=== PATIENT | female | born 1960 | race African-American/Black ===

== ENCOUNTER 2016-08-07 21:39 | Emergency (ER) | payer BC, OTHER ==
[2016-08-07 21:49] VITALS: TEMP 99.1; BMI 27.4
--- NOTE | 2016-08-07 23:11 | PDOC ---
History of Present Illness - General Chief Complaint: Blood Pressure Problem Stated Complaint: PCP SENT/DIARRHEA/VOMITING Time Seen by Provider: 08/07/16 22:02 History Source: Patient Exam Limitations: No Limitations - History of Present Illness Initial Comments: 08/07/16 23:39 56-year-old female presents to the emergency department complaining of diarrhea 3 days. Patient states she has [id number] 3 days ago at a restaurant. When she went home, she started having diarrhea that were nonbilious and nonbloody. She denies any nausea/vomiting, fever, chills, headaches, chest pain, shortness of breath, abdominal pains, flank pains, urinary symptoms. Patient was seen by her PMD: (Dr. Austin Ureña [phone]) who sent patient to the emergency department for evaluation Timing/Duration: other (x3d) Severity: mild Associated Symptoms: reports: other (diarrhea) Past History - Past Medical History Allergies/Adverse Reactions: Allergies Allergy/AdvReac Type Severity Reaction Status Date / Time Penicillins Allergy Mild Rash Verified 08/07/16 21:49 Sulfa (Sulfonamide Allergy Mild Hives Verified 08/07/16 21:49 Antibiotics) [Sulfa(Sulfonamide Antibiotics)] Home Medications: Ambulatory Orders Amlodipine Besylate [Norvasc -] 5 12/22/11 Hydrocortisone 1% Lotion [Hytone 1% Lotion -] 118 ml NR BID #1 bottle 12/22/11 Potassium Chloride [K-Dur 20 Meq] 20 12/22/11 Prednisone [Deltasone -] 20 mg PO DAILY #8 tablet 12/22/11 Valsartan [Diovan] 40 mg PO DAILY 12/22/11 HTN: Yes Thyroid Disease: Yes (hypo) - Immunization History Immunization Up to Date: No - Psycho/Social/Smoking Cessation Hx Anxiety: No Suicidal Ideation: No Smoking Status: No Smoking History: Never smoked Have you smoked in the past 12 months: No Number of Cigarettes Smoked Daily: 0 Information on smoking cessation initiated: No Hx Alcohol Use: No Drug/Substance Use Hx: No Substance Use Type: None Review of Systems - Review of Systems Able to Perform ROS?: Yes Comments:: 08/07/16 23:39 CONSTITUTIONAL: Absent: fever, chills, diaphoresis, generalized weakness, malaise, loss of appetite HEENT: Absent: rhinorrhea, nasal congestion, throat pain, throat swelling, difficulty swallowing, mouth swelling, ear pain, eye pain, visual Changes CARDIOVASCULAR: Absent: chest pain, loss of consciousness, palpitations, irregular heart rate, peripheral edema RESPIRATORY: Absent: cough, shortness of breath, dyspnea with exertion, orthopnea, wheezing, stridor, hemoptysis GASTROINTESTINAL: +diarrhea Absent: abdominal pain, abdominal distension, nausea, vomiting, constipation, melena, hematochezia GENITOURINARY: Absent: dysuria, frequency, urgency, hesitancy, hematuria, flank pain, genital pain MUSCULOSKELETAL: Absent: myalgia, arthralgia, joint swelling SKIN: Absent: rash, itching, pallor HEMATOLOGIC/IMMUNOLOGIC: Absent: easy bleeding, easy bruising, lymphadenopathy, frequent infections ENDOCRINE: Absent: unexplained weight gain, unexplained weight loss, heat intolerance, cold intolerance NEUROLOGIC: Absent: headache, focal weakness or paresthesias, dizziness, unsteady gait, seizure, mental status changes, bladder or bowel incontinence PSYCHIATRIC: Absent: anxiety, depression, suicidal or homicidal ideation, hallucinations. Is the patient limited Lithuanian proficient: No *Physical Exam - Vital Signs Last Vital Signs Temp Pulse Resp BP Pulse Ox 99.1 F 96 H 18 104/72 100 08/07/16 21:45 08/07/16 21:45 08/07/16 21:45 08/07/16 21:45 08/07/16 21:45 - Physical Exam Comments: 08/07/16 23:39 GENERAL: Well developed, well nourished. Awake and alert. No acute distress. HEENT: Normocephalic, atraumatic. PERRLA, EOMI. No conjunctival pallor. Sclera are non- icteric. Moist mucous membranes. Oropharynx is clear. NECK: Supple. Full ROM. No JVD. Carotid pulses 2+ and symmetric, without bruits. No thyromegaly. No lymphadenopathy. CARDIOVASCULAR: Regular rate and rhythm. No murmurs, rubs, or gallops. Distal pulses are 2+ and symmetric. PULMONARY: No evidence of respiratory distress. Lungs clear to auscultation bilaterally. No wheezing, rales or rhonchi. ABDOMINAL: Soft. Non-tender. Non-distended. No rebound or guarding. No organomegaly. Normoactive bowel sounds. MUSCULOSKELETAL Normal range of motion at all joints. No bony deformities or tenderness. No CVA tenderness. EXTREMITIES: No cyanosis. No clubbing. No edema. No calf tenderness. SKIN: Warm and dry. Normal capillary refill. No rashes. No jaundice. NEUROLOGICAL: Alert, awake, appropriate. Cranial nerves 2-12 intact. No deficits to light touch and temperature in face, upper extremities and lower extremities. No motor deficits in the in face, upper extremities and lower extremities. Normoreflexic in the upper and lower extremities. Normal speech. Toes are down- going bilaterally. Gait is normal without ataxia. PSYCHIATRIC: Cooperative. Good eye contact. Appropriate mood and affect. ED Treatment Course - LABORATORY CBC & Chemistry Diagram: 08/07/16 23:17 08/07/16 23:17 *DC/Admit/Observation/Transfer Diagnosis at time of Disposition: Dehydration Diarrhea Qualifiers: Diarrhea type: unspecified type Qualified Code(s): R19.7 - Diarrhea, unspecified - Discharge Dispostion Disposition: HOME Condition at time of disposition: Stable Admit: No - Referrals Referrals: STAFF,NOT ON [Primary Care Provider] - Yann Arenas MD [Staff Physician] - - Patient Instructions Printed Discharge Instructions: DI for Dehydration -- Adult, Diarrhea Additional Instructions: Increase fluids Follow up with your primary care physician Return back to the emergency department for recurrent symptoms Bread, rice, apples, toast
[2016-08-07] MEDS ORDERED: SODIUM CHLORIDE 1,000 ML IV STA (23:12)
[2016-08-07 23:50] LABS: BASOPHIL 0.8 % (0-2.0); EOSINOPHIL 3.7 % (0-4.5); MCH 27.6 pg (25.7-33.7); MCHC 32.5 g/dl (32.0-36.0); MEAN CELL VOLUME 84.9 fl (80-96); NEUTROPHILS 51.1 % (42.8-82.8); PLATELET COUNT 255 K/MM3 (134-434); RDW 16.6 % (11.6-15.6); WHITE BLOOD COUNT 3.8 K/mm3 (4.0-10.0)
[2016-08-08 00:15] LABS: ALBUMIN 3.7 g/dl (3.4-5.0); BILIRUBIN,TOTAL 0.3 mg/dL (0.2-1.0); CALCIUM 8.1 mg/dL (8.5-10.1); COCKROFT - GAULT 67.8555; CREATININE 1.1 mg/dL (0.55-1.02); TOT PROT 6.9 g/dl (6.4-8.2)
[2016-08-08 00:25] LABS: URINE APPEARANCE CLEAR; URINE BILIRUBIN NEGATIVE (NEGATIVE); URINE BLOOD NEGATIVE (NEGATIVE); URINE COLOR LTYELLOW; URINE GLUCOSE (UA) NEGATIVE (NEGATIVE); URINE KETONE NEGATIVE (NEGATIVE); URINE LEUK ESTERASE NEGATIVE (NEGATIVE); URINE NITRITE NEGATIVE (NEGATIVE); URINE PROTEIN NEGATIVE (NEGATIVE); URINE UROBILINOGEN NEGATIVE E.U./dl (0.2-1.0)
[2016-08-08 00:32] LABS: AMYLASE 36 U/L (25-115)
[2016-08-08 00:37] VITALS: BP 115/78; PULSE 84
[2016-08-08] MEDS ORDERED: POTASSIUM CHLORIDE TABS 20 MEQ TABLET.ER (FP) PO ONE ×2 (01:02→01:23)
== END 2016-08-08 02:34 | disposition home or self-care (01) ==
LOC: JER 21:39 → SUPCPDRO 21:39 → JER 08-08 02:34
PROC: 3E0337Z Introduction of Electrolytic and Water Balance Substance into Peripheral Vein, Percutaneous Approach (ICD-10-PCS; principal; 2016-08-07)
DX: E86.0 Dehydration (principal); R19.7 Diarrhea, unspecified; I10 Essential (primary) hypertension; E03.9 Hypothyroidism, unspecified
CPT/HCPCS: 36415; 80053; 81003; 82150; 83690; 85025; 99281-25

== ENCOUNTER 2018-05-14 10:38 | Emergency (ER) | payer BC ==
[2018-05-14 10:47] VITALS: BMI 28.2
--- NOTE | 2018-05-14 12:14 | PDOC ---
History of Present Illness - General Chief Complaint: Diarrhea Stated Complaint: DIARRHEA Time Seen by Provider: 05/14/18 12:14 Past History - Past Medical History Allergies/Adverse Reactions: Allergies Allergy/AdvReac Type Severity Reaction Status Date / Time Penicillins Allergy Mild Rash Verified 05/14/18 10:46 Sulfa (Sulfonamide Allergy Mild Hives Verified 05/14/18 10:46 Antibiotics) [Sulfa(Sulfonamide Antibiotics)] Home Medications: Ambulatory Orders Amlodipine Besylate [Norvasc -] 5 12/22/11 Hydrocortisone 1% Lotion [Hytone 1% Lotion -] 118 ml NR BID #1 bottle 12/22/11 Potassium Chloride [K-Dur 20 Meq] 20 12/22/11 Valsartan [Diovan] 40 mg PO DAILY 12/22/11 predniSONE [Deltasone -] 20 mg PO DAILY #8 tablet 12/22/11 COPD: No HTN: Yes Thyroid Disease: Yes (hypo) - Immunization History Immunization Up to Date: No - Suicide/Smoking/Psychosocial Hx Smoking Status: No Smoking History: Never smoked Have you smoked in the past 12 months: No Number of Cigarettes Smoked Daily: 0 Hx Alcohol Use: No Drug/Substance Use Hx: No Substance Use Type: None *Physical Exam - Vital Signs Last Vital Signs Temp Pulse Resp BP Pulse Ox 99.5 F 89 18 120/81 99 05/14/18 10:44 05/14/18 10:44 05/14/18 10:44 05/14/18 10:44 05/14/18 10:44 Moderate Sedation - Procedure Monitoring Vital Signs: Procedure Monitoring Vital Signs Temperature 99.5 F 05/14/18 10:44 Pulse Rate 89 05/14/18 10:44 Respiratory Rate 18 05/14/18 10:44 Blood Pressure 120/81 05/14/18 10:44 O2 Sat by Pulse Oximetry (%) 99 05/14/18 10:44 *DC/Admit/Observation/Transfer - Referrals Referrals: Sukhjinder Serra MD [Primary Care Provider] - - Patient Instructions - Post Discharge Activity
--- NOTE | 2018-05-14 12:16 | PDOC ---
History of Present Illness - General Chief Complaint: Diarrhea Stated Complaint: DIARRHEA Time Seen by Provider: 05/14/18 12:14 - History of Present Illness Initial Comments: 58yo F with PMH of HTN, thyroid disorder, and migraines present with diarrhea and abdominal pain. Patient states she has had episodes of water nonbloody diarrhea x 1 week. Patient reports that the diarrhea became more frequent later on in the week, for up to about five episodes per day. Three days ago, she had some questionable Urdu food after which she experienced one episode of nonbloody nonbilious vomiting. Last night, patient had RLQ pain that she rates at 5/10 and describes as "pressure." It is non-radiating and she has never had anything like this before. No history of abdominal surgeries. Had a colonoscopy three years ago which was "normal." No recent antibiotic use, no sick contacts, or recent travel. No dysuria or hematuria. Denies fevers, chills, chest pain, or shortness of breath. Past History - Past Medical History Allergies/Adverse Reactions: Allergies Allergy/AdvReac Type Severity Reaction Status Date / Time Penicillins Allergy Mild Rash Verified 05/14/18 10:46 Sulfa (Sulfonamide Allergy Mild Hives Verified 05/14/18 10:46 Antibiotics) [Sulfa(Sulfonamide Antibiotics)] Home Medications: Ambulatory Orders Amlodipine Besylate [Norvasc -] 5 12/22/11 Hydrocortisone 1% Lotion [Hytone 1% Lotion -] 118 ml NR BID #1 bottle 12/22/11 Potassium Chloride [K-Dur 20 Meq] 20 12/22/11 Valsartan [Diovan] 40 mg PO DAILY 12/22/11 predniSONE [Deltasone -] 20 mg PO DAILY #8 tablet 12/22/11 Nitrofurantoin Macrocrystal [Nitrofurantoin] 100 mg PO BID #10 capsule 05/14/18 COPD: No HTN: Yes Thyroid Disease: Yes (hypo) - Immunization History Immunization Up to Date: No - Suicide/Smoking/Psychosocial Hx Smoking Status: No Smoking History: Never smoked Have you smoked in the past 12 months: No Number of Cigarettes Smoked Daily: 0 Hx Alcohol Use: No Drug/Substance Use Hx: No Substance Use Type: None Review of Systems - Review of Systems Comments:: Constitutional: no fever, no chills HEENT: no throat pain, no dysphagia Cardiovascular: no chest pain, no palpitations Respiratory: no cough, no shortness of breath Gastrointestinal: +abdominal pain, +vomiting, + diarrhea Genitourinary: no dysuria, no frequency Musculoskeletal: no myalgia, no arthralgia Skin: no rash, no itching Neurologic: +headache, no dizziness *Physical Exam - Vital Signs Last Vital Signs Temp Pulse Resp BP Pulse Ox 99.5 F 89 18 120/81 99 05/14/18 10:44 05/14/18 10:44 05/14/18 10:44 05/14/18 10:44 05/14/18 10:44 - Physical Exam Comments: General: Awake, alert, and fully oriented, in no acute distress Head: No signs of trauma Eyes: EOMI, sclera anicteric ENT: Moist mucus membranes Neck: Normal ROM, supple Lungs: Lungs clear, Normal breath sounds Cardio: Regular rhythm, S1 and S2 present Abdomen: Soft, nondistended. Mildly tender to palpation of RLQ. No guarding, no rebound, no masses. Negative Rosving. Negative Psoas. Extremities: Normal range of motion, Distal pulses present SKIN: Warm, Dry, normal turgor Neurologic: Cranial nerves II through XII grossly intact. Normal speech Moderate Sedation - Procedure Monitoring Vital Signs: Procedure Monitoring Vital Signs Temperature 99.5 F 05/14/18 10:44 Pulse Rate 89 05/14/18 10:44 Respiratory Rate 18 05/14/18 10:44 Blood Pressure 120/81 05/14/18 10:44 O2 Sat by Pulse Oximetry (%) 99 05/14/18 10:44 ED Treatment Course - LABORATORY CBC & Chemistry Diagram: 05/14/18 13:00 05/14/18 13:00 Medical Decision Making - Medical Decision Making 58yo F with PMH of HTN, thyroid disorder, and migraines present with diarrhea and abdominal pain. DDX includes but not limited to appendicitis, gastroenteritis, C.diff, diverticulitis, colitis, UTI CBC, CMP, Lipase, UA, UCx, EKG, Lactate CT abdomen/pelvis with contrast 1L NS 05/14/18 12:57 No anemia or leukocytosis Ct negative for acute pathology UA positive for infection with positive nitrites and 15 WBC Marobid, Ofirmev, another 1L NS given 05/14/18 16:40 Patient reports feeling better Plan to discharge. 02/16/19 17:32 *DC/Admit/Observation/Transfer Diagnosis at time of Disposition: Diarrhea, Dehydration - Discharge Dispostion Disposition: HOME Condition at time of disposition: Stable - Prescriptions Prescriptions: Nitrofurantoin Macrocrystal [Nitrofurantoin] 100 mg PO BID #10 capsule - Referrals Referrals: Sukhjinder Serra MD [Primary Care Provider] - - Patient Instructions Printed Discharge Instructions: DI for Abdominal Pain-Adult Additional Instructions: You came into the ED for abdominal pain. Labs and CT imaging did not show any acute pathology. Your urinalysis did show you have a urinary tract infection. Antibiotics prescription has been sent to your pharmacy. Follow-up with your primary care doctor this week to discuss this ED visit and to further evaluate your symptoms. Immediate medical attention is required if you have: you develop worsening pain , high fevers, persistent nausea, vomiting, or any new or concerning symptoms. If you think you are having an emergency, call for emergency medical services or present to the emergency department right away. - Post Discharge Activity
[2018-05-14] MEDS ORDERED: SODIUM CHLORIDE 1,000 ML IV STA ×2 (12:39→16:26)
[2018-05-14 14:03] LABS: BASO % 0.8 % (0-2.0); EOS % 2.1 % (0-4.5); HEMATOCRIT 40.5 % (32.4-45.2); HEMOGLOBIN 13.7 GM/dL (10.7-15.3); LYMPH % 21.2 % (8-40); MCH 28.6 pg (25.7-33.7); MCHC 33.8 g/dl (32.0-36.0); MEAN CELL VOLUME 84.5 fl (80-96); MEAN PLT VOLUME 8.2 fl (7.5-11.1); MONO % 9.2 % (3.8-10.2); NEUT % 66.7 % (42.8-82.8); PLATELET COUNT 276 K/MM3 (134-434); RDW 15.9 % (11.6-15.6); WHITE BLOOD COUNT 5.3 K/mm3 (4.0-10.0)
--- NOTE | 2018-05-14 14:08 | PDOC ---
Attending Attestation - Resident Resident Name: Jenny Tinajero - ED Attending Attestation I have performed the following: I have examined & evaluated the patient, The case was reviewed & discussed with the resident, I agree w/resident's findings & plan, Exceptions are as noted - HPI HPI: 05/14/18 14:02 "The patient is a 58 year old female, with a significant past medical history of HTN, migraines, thyroid disorder (s/p partial thyroidectomy) who presents to the emergency department for 1 week of lower abdominal pain and diarrhea. The patient reports 5x episodes of watery diarrhea, nonbloody and nontarry per day. The patient notes she ate venezuelan food on wednesday and had 1 episode of vomiting, nonbloody and nonbilious. Starting last night, pt began to experience RLQ abdominal discomfort which brought her into the ED today. She denies sick contact. She denies recent travel. She denies recent fevers, chills, headache or dizziness. She denies recent dysuria, frequency, urgency or hematuria. She denies recent chest pain or shortness of breath. Allergies: Penicillins, Sulfa (Sulfonamide antibiotics) Past surgical history: R and L rotator cuff repairs Primary Care Physician: Dr. Sukhjinder Serra, Phone#: [phone] " - Physicial Exam PE: 05/14/18 14:08 "GENERAL: Awake, alert, and fully oriented, in no acute distress. HEAD: No signs of trauma EYES: PERRLA, EOMI, sclera anicteric, conjunctiva clear ENT: Auricles normal inspection, hearing grossly normal, nares patent, oropharynx clear without exudates. Moist mucosa NECK: Nontender, no stepoffs, Normal ROM, supple, no lymphadenopathy, JVD, or masses LUNGS: Breath sounds equal, clear to auscultation bilaterally. No wheezes, and no crackles HEART: Regular rate and rhythm, normal S1 and S2, no murmurs, rubs or gallops ABDOMEN: + RLQ TTP, normoactive bowel sounds. No guarding, no rebound. No masses EXTREMITIES: Normal range of motion, no edema. No clubbing or cyanosis. No cords, erythema, or tenderness NEUROLOGICAL: Cranial nerves II through XII intact. 5/5 strength and sensation in all extremities, Normal speech, normal gait, normal cerebellar function SKIN: Warm, Dry, normal turgor, no rashes or lesions noted. - Medical Decision Making 05/14/18 14:08 58 F with vomiting, diarrhea, RLQ tenderness. WIll need to r/o appy. - Labs - CTAP - IVF, pain control 05/14/18 16:[address] shows small umbilical hernia, no appy UA consistent with UTI Will DC with abx Pt is well appearing, with normal vitals. Clinically stable for DC at this time. I discussed the physical exam findings, ancillary test results and final diagnoses with the patient. I answered all of the patient's questions. The patient was satisfied with the care received and felt comfortable with the discharge plan and treatment plan. The patient agrees to follow up with the primary care physician within 24-72 hours.
[2018-05-14 14:35] LABS: ALBUMIN 3.8 g/dl (3.4-5.0); ALK PHOS 86 U/L (45-117); ANION GAP 8 MMOL/L (8-16); BILIRUBIN,TOTAL 0.3 mg/dL (0.2-1); BLOOD UREA NITROGEN 15 mg/dL (7-18); CALCIUM 9.1 mg/dL (8.5-10.1); CHLORIDE 99 mmol/L (98-107); CO2 31 mmol/L (21-32); CREATININE 0.7 mg/dL (0.55-1.3); GLUCOSE,RANDOM 107 mg/dL (74-106); LIPASE 120 U/L (73-393); POTASSIUM 3.4 mmol/L (3.5-5.1); SGOT/AST 17 U/L (15-37); SGPT/ALT 22 U/L (13-61); SODIUM 138 mmol/L (136-145); TOT PROT 7.6 g/dl (6.4-8.2)
[2018-05-14 14:43] LABS: URINE APPEARANCE SLCLOUDY; URINE BILIRUBIN NEGATIVE (<2.0 mg/dL); URINE COLOR YELLOW; URINE GLUCOSE (UA) NEGATIVE (NEGATIVE); URINE KETONE NEGATIVE (NEGATIVE); URINE LEUK ESTERASE TRACE (NEGATIVE); URINE NITRITE POSITIVE (NEGATIVE); URINE PROTEIN NEGATIVE (NEGATIVE); URINE UROBILINOGEN NEGATIVE mg/dL (0.2-1.0)
[2018-05-14 14:48] LABS: EPI CELLS RARE /HPF (FEW); URINE MUCUS RARE
[2018-05-14] MEDS ORDERED: ACETAMINOPHEN 1000 MG/100 ML VIAL (NON FORMULARY) IVPB ONE (16:26)
[2018-05-14] MEDS ORDERED: NITROFURANTOIN MACROCRYSTAL 50 MG CAPSULE (FP) PO SCH (16:30)
[2018-05-14] MEDS ORDERED: NITROFURANTOIN MACROCRYSTAL 50 MG CAPSULE (FP) ONE (16:40)
[2018-05-14] MEDS ORDERED: ACETAMINOPHEN INJECTION 100 ML IVPB ONE (16:41)
[2018-05-14 17:56] VITALS: BP 138/74; PULSE 74; TEMP 98.9
--- NOTE | 2018-05-15 12:56 | EKG ---
Test Reason : Blood Pressure : / mmHG Vent. Rate : 062 BPM Atrial Rate : 062 BPM P-R Int : 170 ms QRS Dur : 080 ms QT Int : 420 ms P-R-T Axes : 059 023 045 degrees QTc Int : 426 ms NORMAL SINUS RHYTHM NORMAL ECG WHEN COMPARED WITH ECG OF 19-NOV-2011 03:52, NO SIGNIFICANT CHANGE WAS FOUND Confirmed by JASPAL BAUTISTA MD ([id number]) on 05/15/2018 12:56:16 PM Referred By: Confirmed By:JASPAL BAUTISTA MD
== END 2018-05-14 17:59 | disposition home or self-care (01) ==
LOC: JER 10:38
PROC: 3E0337Z Introduction of Electrolytic and Water Balance Substance into Peripheral Vein, Percutaneous Approach (ICD-10-PCS; principal; 2018-05-14)
PROC: 3E033NZ Introduction of Analgesics, Hypnotics, Sedatives into Peripheral Vein, Percutaneous Approach (ICD-10-PCS; 2018-05-14)
DX: N39.0 Urinary tract infection, site not specified (principal); E86.0 Dehydration; B96.89 Other specified bacterial agents as the cause of diseases classified elsewhere
CPT/HCPCS: 36415; 74177-TC; 80053; 81003; 81015; 83605; 83690; 85025; 87086; 87186; 93005; 93010; 99282-25; J0131; J7030

== ENCOUNTER 2018-06-04 21:43 | Emergency (ER) | payer BC ==
[2018-06-04 21:49] VITALS: BP 142/85; PULSE 90; TEMP 98.5; BMI 27.4
--- NOTE | 2018-06-04 22:20 | PDOC ---
Attending Attestation - HPI HPI: 06/05/18 00:08 The patient is a 58 year old female, with a significant PMH of hypothyroidism and HTN, who presents to the emergency department complaining of migraines that began tonight. The patient states she ate half a gyro when she felt a sudden onset of blurry vision, left eye pain and migraines. She also mentions her left arm felt weak.The patient denies chest pain, shortness of breath and dizziness.Denies fever, chills, nausea, vomit, diarrhea and constipation. Allergies: Penicillins, Sulfa Past surgical history: None reported Social history: None reported PCP: Sukhjinder Serra Documentation prepared by Kody Rm, acting as medical data analyst for Dori Ravi MD. - Physicial Exam PE: 06/05/18 00:12 GENERAL: Awake, alert, and fully oriented, in no acute distress HEAD: No signs of trauma LUNGS: Breath sounds equal, clear to auscultation bilaterally. No wheezes, and no crackles HEART: Regular rate and rhythm, normal S1 and S2, no murmurs, rubs or gallops ABDOMEN: Soft, nontender, normoactive bowel sounds. No guarding, no rebound. No masses EXTREMITIES: Normal range of motion, no edema. No clubbing or cyanosis. No cords, erythema, or tenderness NEUROLOGICAL: Cranial nerves II through XII grossly intact. Normal speech. SKIN: Warm, Dry, normal turgor, no rashes or lesions noted. Documentation prepared by Kody Rm, acting as medical data analyst for Dori Ravi MD. <Kody Rm - Last Filed: 06/05/18 00:56> - Resident Resident Name: Earle Harper - Medical Decision Making 06/05/18 01:20 Pt presents to the Ed complaining of the acute onset of headache that is similar to her migraines and L arm numbness. Still complaining of L arm numbness although weakness has resolved. Headache resolving with reglan and morphine. symptoms are most likely complicated migraine, but given age, cannot rule out CVA. Pt offered admission, to rule out TIA but declined and is leaving AMA. Understands risk of CVA. Will follow up with her PMD. <Dori Ravi - Last Filed: 06/05/18 01:32>
[2018-06-04] MEDS ORDERED: SODIUM CHLORIDE 1,000 ML IV STA (22:34)
[2018-06-04] MEDS ORDERED: ACETAMINOPHEN 1000 MG/100 ML VIAL (NON FORMULARY) IVPB ONE (22:35)
[2018-06-04] MEDS ORDERED: METOCLOPRAMIDE HCL INJECTION 10 MG/2 ML VIAL IVPUSH ONE (22:35)
[2018-06-04 22:50] LABS: HEMOGLOBIN 12.7 GM/dL (10.7-15.3); MCHC 34.3 g/dl (32.0-36.0); MEAN CELL VOLUME 84.7 fl (80-96); MEAN PLT VOLUME 7.6 fl (7.5-11.1); PLATELET COUNT 280 K/MM3 (134-434); RBC 4.37 M/mm3 (3.60-5.2); RDW 16.1 % (11.6-15.6); WHITE BLOOD COUNT 6.7 K/mm3 (4.0-10.0)
[2018-06-04] MEDS ORDERED: ACETAMINOPHEN INJECTION 100 ML IVPB ONE (22:54)
[2018-06-04] MEDS ORDERED: METOCLOPRAMIDE HCL INJECTION 10 MG/2 ML VIAL ONE (22:54)
--- NOTE | 2018-06-04 23:04 | PDOC ---
History of Present Illness - General Chief Complaint: Migraine Headache Stated Complaint: MIGRAIN HEADACHES Time Seen by Provider: 06/04/18 22:06 History Source: Patient Exam Limitations: No Limitations - History of Present Illness Initial Comments: 06/04/18 22:58 Patient is a 58F with history of migraines, HTN, hypothyroidism here today complaining of headache that onset 30 minutes prior to arrival to the ED. She states that her vision became obscured by "zigzags" typical of her normal migraine headache. She then states that she felt some tingling in her right arm , describing it as a "funny" feeling without weakness. No facial droop. Patient then states that she started feeling a slow onset of pain around her left eye, gradually worsening. Patient states that the blurred vision and arm tingling resolved. Denies chest pain, fevers, chills, nausea, vomiting, shortness of breath. NIH Stroke Scale - Last Known Well Date/Time & Onset Date Last Known Well: 06/04/18 Time Last Known Well: 21:30 - Initial Evaluation Level of consciousness: Alert Ask patient the month and their age: Answers both correctly Ask patient to open & close eyes; make fist and let go: Obeys both correctly Best gaze (horizontal eye movement): Normal Visual field testing: No visual field loss Facial paresis (Show teeth/raise eyebrows/close eyes tight): Normal symmetrical movement Motor Function: Left Arm: Normal Motor Function: Right Arm: Normal (extends arm 90 (or 45) degrees for 10 seconds without drift Motor Function: Left Leg: Normal (extends leg 30 degrees for 5 seconds without drift) Motor Function: Right Leg: Normal (extends leg 30 degrees for 5 seconds without drift) Limb Ataxia: No ataxia Sensory(Use pinprick test arms,legs,trunk,face/side to side): Normal Best language (Describe picture, name items, read sentences): No Aphasia Dysarthria (read several words): Normal articulation Extinction and Inattention: No abnormality - Total Score NIH Stroke Scale Score: 0 Past History - Past Medical History Allergies/Adverse Reactions: Allergies Allergy/AdvReac Type Severity Reaction Status Date / Time Penicillins Allergy Mild Rash Verified 06/04/18 21:49 Sulfa (Sulfonamide Allergy Mild Hives Verified 06/04/18 21:49 Antibiotics) [Sulfa(Sulfonamide Antibiotics)] Home Medications: Ambulatory Orders Amlodipine Besylate [Norvasc -] 10 mg PO DAILY 12/22/11 Potassium Chloride [K-Dur 20 Meq] 20 meq PO DAILY 12/22/11 Valsartan [Diovan] 80 mg PO DAILY 12/22/11 Levothyroxine [Synthroid -] 75 mcg PO DAILY 06/04/18 COPD: No HTN: Yes Thyroid Disease: Yes (hypo) - Immunization History Immunization Up to Date: No - Suicide/Smoking/Psychosocial Hx Smoking Status: No Smoking History: Never smoked Have you smoked in the past 12 months: No Number of Cigarettes Smoked Daily: 0 Hx Alcohol Use: No Drug/Substance Use Hx: No Substance Use Type: None Review of Systems - Review of Systems Comments:: 06/04/18 23:00 GENERAL/CONSTITUTIONAL: No fever or chills. No weakness. HEAD, EYES, EARS, NOSE AND THROAT: +change in vision. No sore throat. CARDIOVASCULAR: No chest pain or shortness of breath RESPIRATORY: No cough, wheezing, or hemoptysis. GASTROINTESTINAL: No nausea, vomiting, diarrhea or constipation. GENITOURINARY: No dysuria, frequency, or change in urination. MUSCULOSKELETAL: No joint or muscle swelling or pain. No neck or back pain. SKIN: No rash NEUROLOGIC: +headache, no vertigo, loss of consciousness, or change in strength/ sensation. ENDOCRINE: No increased thirst. No abnormal weight change HEMATOLOGIC/LYMPHATIC: No anemia, easy bleeding, or history of blood clots. ALLERGIC/IMMUNOLOGIC: No hives or skin allergy. *Physical Exam - Vital Signs Last Vital Signs Temp Pulse Resp BP Pulse Ox 98.5 F 90 18 142/85 98 06/04/18 21:48 06/04/18 21:48 06/04/18 21:48 06/04/18 21:48 06/04/18 21:48 - Physical Exam Comments: 06/04/18 23:01 GENERAL: Awake, alert, and fully oriented, in no acute distress HEAD: No signs of trauma, normocephalic, atraumatic, nontender along temporal region to palpation EYES: PERRLA, EOMI, sclera anicteric, conjunctiva clear ENT: Auricles normal inspection, hearing grossly normal, nares patent, oropharynx clear without exudates. Moist mucosa NECK: Normal ROM, supple, no lymphadenopathy, JVD, or masses LUNGS: No distress, speaks full sentences, clear to auscultation bilaterally HEART: Regular rate and rhythm, normal S1 and S2, no murmurs, rubs or gallops, peripheral pulses normal and equal bilaterally. ABDOMEN: Soft, nontender, normoactive bowel sounds. No guarding, no rebound. No masses EXTREMITIES: Normal inspection, Normal range of motion, no edema. No clubbing or cyanosis. NEUROLOGICAL: Cranial nerves II through XII grossly intact. Normal speech, no focal sensorimotor deficits SKIN: Warm, Dry, normal turgor, no rashes or lesions noted. Moderate Sedation - Procedure Monitoring Vital Signs: Procedure Monitoring Vital Signs Temperature 98.5 F 06/04/18 21:48 Pulse Rate 90 06/04/18 21:48 Respiratory Rate 18 06/04/18 21:48 Blood Pressure 142/85 06/04/18 21:48 O2 Sat by Pulse Oximetry (%) 98 06/04/18 21:48 ED Treatment Course - LABORATORY CBC & Chemistry Diagram: 06/04/18 22:44 06/04/18 22:44 - ADDITIONAL ORDERS Additional order review: 06/04/18 22:44 RBC 4.37 MCV 84.7 MCHC 34.3 RDW 16.1 H MPV 7.6 Medical Decision Making - Medical Decision Making 06/04/18 23:01 Patient is 58F here today with headache. Vitals normal and stable. Ddx focused on TIA vs complex migraine. Will do tia labs, cxr, ekg, head ct. Likely obs admission. 06/05/18 01:21 CBC normal. CMP reassuring. CXR clear. Trop neg. EKG shows NSR with rate of 86. No st elevations/depressions. Normal axis. Normal intervals. No significant t wave abnormalities. CT head shows no acute abnormalities. Patient states that she does not want to be admitted. Will follow up with neurology at home. Patient given aspirin, instructed to take aspirin until cleared by neurology. *DC/Admit/Observation/Transfer Diagnosis at time of Disposition: Migraine - Discharge Dispostion Disposition: AGAINST MEDICAL ADVICE Condition at time of disposition: Stable Decision to Admit order: No - Referrals - Patient Instructions Additional Instructions: You were seen today in the ED for concerns about a migraine or TIA/Stroke. You are leaving today against medical advice. You are welcome to return at any time. Please return immediately if you have any new, worsening or concerning symptoms, especially weakness, facial droop or increasing pain. Please follow up with your neurologist as planned. Please take the aspirin until cleared by neurologist. - Post Discharge Activity
[2018-06-04 23:42] LABS: ALBUMIN 3.6 g/dl (3.4-5.0); ALK PHOS 102 U/L (45-117); ANION GAP 10 MMOL/L (8-16); BILIRUBIN,TOTAL 0.2 mg/dL (0.2-1); BLOOD UREA NITROGEN 22 mg/dL (7-18); CALCIUM 9.1 mg/dL (8.5-10.1); CHLORIDE 98 mmol/L (98-107); CO2 28 mmol/L (21-32); CREATININE 1.3 mg/dL (0.55-1.3); GLUCOSE,RANDOM 179 mg/dL (74-106); POTASSIUM 3.2 mmol/L (3.5-5.1); SGOT/AST 41 U/L (15-37); SGPT/ALT 29 U/L (13-61); SODIUM 136 mmol/L (136-145); TOT PROT 7.7 g/dl (6.4-8.2)
[2018-06-05] MEDS ORDERED: ASPIRIN 81 MG CHEWABLE TABLETS PO ONE (01:01)
[2018-06-05] MEDS ORDERED: ASPIRIN 325 MG TABLET ONE (01:16)
--- NOTE | 2018-06-05 11:50 | EKG ---
Test Reason : Blood Pressure : / mmHG Vent. Rate : 086 BPM Atrial Rate : 086 BPM P-R Int : 168 ms QRS Dur : 070 ms QT Int : 384 ms P-R-T Axes : 055 013 024 degrees QTc Int : 459 ms NORMAL SINUS RHYTHM LOW VOLTAGE QRS BORDERLINE ECG WHEN COMPARED WITH ECG OF 14-MAY-2018 13:02, NO SIGNIFICANT CHANGE WAS FOUND Confirmed by KRYSTIN CURTIS MD ([id number]) on 06/05/2018 11:50:05 AM Referred By: Confirmed By:KRYSTIN CURTIS MD
== END 2018-06-05 01:46 | disposition left against medical advice (07) ==
LOC: JER 21:43
PROC: 3E0337Z Introduction of Electrolytic and Water Balance Substance into Peripheral Vein, Percutaneous Approach (ICD-10-PCS; principal; 2018-06-04)
PROC: 3E033NZ Introduction of Analgesics, Hypnotics, Sedatives into Peripheral Vein, Percutaneous Approach (ICD-10-PCS; 2018-06-04)
PROC: 3E033GC Introduction of Other Therapeutic Substance into Peripheral Vein, Percutaneous Approach (ICD-10-PCS; 2018-06-04)
DX: G43.909 Migraine, unspecified, not intractable, without status migrainosus (principal); I10 Essential (primary) hypertension; E03.8 Other specified hypothyroidism
CPT/HCPCS: 36415; 70450-TC; 71045-TC-FY; 80053; 82550; 84484; 85027; 93005; 93010; 99284-25; J0131; J7030

== ENCOUNTER 2023-08-08 17:23 | Emergency (ER) | payer BC, OTHER ==
[2023-08-08 17:29] VITALS: RESP 18; TEMP 97.8; BMI 26.6
[2023-08-08 18:11] VITALS: BP 144/99; PULSE 78
[2023-08-08] MEDS ORDERED: FAMOTIDINE 20 MG/50 ML IVPB 20 MG/50 ML MG IVPB ONE (18:12)
[2023-08-08] MEDS ORDERED: ACETAMINOPHEN INJECTION 100 ML IVPB ONE (18:12)
[2023-08-08] MEDS ORDERED: MAG HYDROX/AL HYDROX/SIMETH 30 ML UNIT-DOSE CUP ONE (18:12)
[2023-08-08] MEDS: FAMOTIDINE 20 MG/50 ML IVPB 20 MG/50 ML MG IVPB ONE (18:20)
[2023-08-08] MEDS: ACETAMINOPHEN 1000 MG/100 ML BAG IVPB ONE (18:20)
[2023-08-08] MEDS: SODIUM CHLORIDE 0.9% 500 ML INFUS.BAG IV ONE (18:20)
[2023-08-08] MEDS: MAG HYDROX/AL HYDROX/SIMETH -MYLANTA- ORAL SUSPENSION PO ONE (18:30)
[2023-08-08 18:52] LABS: BASO % 0.7 % (0-2.0); EOS % 2.9 % (0-4.5); HEMATOCRIT 38.4 % (32.4-45.2); HEMOGLOBIN 12.6 GM/dL (10.7-15.3); LYMPH % 20.5 % (8-40); MCH 27.7 pg (25.7-33.7); MCHC 32.9 g/dl (32.0-36.0); MEAN CELL VOLUME 84.3 fl (80-96); MEAN PLT VOLUME 7.8 fl (7.5-11.1); MONO % 7.9 % (3.8-10.2); PLATELET COUNT 318 10^3/uL (134-434); RBC 4.56 M/mm3 (3.60-5.2); RDW 16.3 % (11.6-15.6); WHITE BLOOD COUNT 6.5 K/mm3 (4.0-10.0)
[2023-08-08 19:15] LABS: POTASSIUM 4.2 mmol/L (3.5-5.1)
[2023-08-08 19:17] LABS: CALCIUM 9.6 mg/dL (8.5-10.1)
[2023-08-08 19:18] LABS: BLOOD UREA NITROGEN 19.4 mg/dL (7-18)
[2023-08-08 19:20] LABS: CREATININE 0.8 mg/dL (0.55-1.3)
[2023-08-08 19:22] LABS: BILIRUBIN,TOTAL 0.4 mg/dL (0.2-1); TOT PROT 7.1 g/dl (6.4-8.2)
[2023-08-08 19:24] LABS: PH,URINE 5.5 (5.0-8.0); URINE APPEARANCE CLEAR; URINE BILIRUBIN NEGATIVE (NEGATIVE); URINE COLOR YELLOW; URINE GLUCOSE (UA) NEGATIVE (NEGATIVE); URINE KETONE NEGATIVE (NEGATIVE); URINE LEUK ESTERASE NEGATIVE (NEGATIVE); URINE NITRITE NEGATIVE (NEGATIVE); URINE PROTEIN NEGATIVE (NEGATIVE); URINE UROBILINOGEN 0.2 mg/dL (0.2-1.0)
== END 2023-08-08 21:18 | disposition home or self-care (01) ==
LOC: JER 17:23
PROC: 3E033GC Introduction of Other Therapeutic Substance into Peripheral Vein, Percutaneous Approach (ICD-10-PCS; principal; 2023-08-08)
PROC: 3E030NZ Introduction of Analgesics, Hypnotics, Sedatives into Peripheral Vein, Open Approach (ICD-10-PCS; 2023-08-08)
DX: R10.12 Left upper quadrant pain (principal)
CPT/HCPCS: 36415; 74176-TC; 80053; 81003; 83690; 84484; 85025; 87086; 93005; 93010; 99285-25; J0131

== ENCOUNTER 2023-11-12 15:45 | Emergency (ER) | payer OTHER ==
[2023-11-12 15:53] VITALS: BP 119/73; PULSE 92; RESP 18; TEMP 98.5; BMI 26.6
[2023-11-12] MEDS ORDERED: IBUPROFEN 600 MG TABLET (FP) PO ONE (16:52)
[2023-11-12] MEDS: IBUPROFEN 600 MG TABLET (FP) PO ONE (16:55)
== END 2023-11-12 20:02 | disposition home or self-care (01) ==
LOC: JERFT 15:45
PROC: 2W3CX1Z Immobilization of Right Lower Arm using Splint (ICD-10-PCS; principal; 2023-11-12)
DX: S82.831A Other fracture of upper and lower end of right fibula, initial encounter for closed fracture (principal); W10.9XXA Fall (on) (from) unspecified stairs and steps, initial encounter
CPT/HCPCS: 73610-TC-RT-FY; 73630-TC-RT-FY; 99283-25

== ENCOUNTER 2024-08-12 14:45 | Emergency (ER) | payer OTHER ==
[2024-08-12 14:53] VITALS: BP 111/71; PULSE 98; RESP 16; TEMP 98.8; BMI 26.6
== END 2024-08-12 18:43 | disposition home or self-care (01) ==
LOC: JER 14:45
DX: R42 Dizziness and giddiness (principal); R05.9 Cough, unspecified
CPT/HCPCS: 71046-TC-FY; 82962; 93005; 93010; 99285-25